=== PATIENT | male | born 1975 | race Caucasian/White ===

== ENCOUNTER 2025-03-09 17:25 | Emergency (ER) | payer MEDICAID ==
[~2025-03-09] VITALS: Ht 177.8 cm; Wt 97.7 kg
[2025-03-09 17:28] VITALS: BP 153/88; PULSE 87; RESP 16; TEMP 97.4; O2SAT 99
--- NOTE | 2025-03-09 18:09 | Physician Documentation ---
History of Present Illness ~ Chief Complaint: Bite-animal Stated Complaint: DOG BIT Time Seen by MD: 17:59 Primary Medical Doctor: NONE HPI This is a 49-year-old male who presents two days after a dog bite to the right anterior forearm caused while trying to shw[place] a dog from a neighboring camp site out of [place] away from [place] dogs. Patient reports the area was thoroughly cleaned though he is worried that it may become infected as it has become red in the area. Patient reports no fevers. Patient reports unknown last tetanus booster. Tetanus within 5 years?: Yes Medication Reconciliation Allergies: Coded Allergies: Penicillins (Verified Allergy, Unknown, 03/09/25) Scheduled Amox Tr/Potassium Clavulanate 875/125 MG (Augmentin 875/125 MG), 1 TAB PO BID Review of Systems ROS Dog bite to right forearm as stated above in the HPI, otherwise all systems are reviewed and negative. Physical Exam Vital Signs: Temperature: 97.4, Source: Temporal, Heart Rate: 87, Respiratory Rate: 16, BP: 153/88, Pulse Oximetry: 99, Weight: 97.730 Oxygen Flow Rate: 0 Physical Exam VITALS: Reviewed and as above. GENERAL: Alert, nontoxic appearing, no apparent distress. RESPIRATORY: No increased work of breathing, no respiratory distress, speaking in full clear sentences SKIN: 1 cm laceration to right anterior forearm with mild erythema surrounding wound. Progress Results/Orders Results/Orders Completed Orders - KONRAD BENAVIDES [employer] Amox Tr/Potassium Clavulanate (Augmentin (03/09/25 18:15) Tetanus/Pertuss/Diph Acell/Pf (Boostrix (03/09/25 18:15) Medications Received in ER Medications (Trade) Dose Ordered Sig/Rohit Route PRN Reason Start Time Stop Time Status Last Admin Dose Admin (Augmentin 875-125mg tablet) 1 tab ONCE ONCE PO 03/09/25 18:15 03/09/25 18:16 DC 03/09/25 18:20 1 TAB (Boostrix vaccine syringe) 0.5 ml ONCE ONCE IMVAC 03/09/25 18:15 03/09/25 18:16 DC 03/09/25 18:20 0.5 ML Vital Signs 03/09/25 17:28 Temp 97.4 Pulse 87 Resp 16 B/P (MAP) 153/88 Pulse Ox 99 O2 Flow Rate 0 Medical Decision Making Findings This 49-year-old male presented with a dog bite to his right forearm that occurred two days prior, there was some erythema on exam though no induration to suggest cellulitis. Patient is otherwise well-appearing, wound appears superficial and no evidence of retained foreign body. Patient to be treated with antibiotic and provided tetanus booster. Patient is appropriate for outpatient follow up. Patient reports allergy to penicillin in his parents, patient reports he has never had penicillin so he is unsure if he is actually allergic to it. Patient reports that he has had amoxicillin in the past without reaction. Patient provided home care instructions and return to care precautions which he verbalized understanding of. Differential Dx:Considerations: Include: Anaphylaxis, Cellulitis, Laceration, Neurovascular injury, Retained foreign body Departure Disposition: 01 HOME / SELF CARE / HOMELESS Impression: Primary Impression: Dog bite Qualified Codes: W54.0XXA - Bitten by dog, initial encounter Condition: Improved Discharge Instructions: Animal Bite, Adult Additional Instructions: Recommend washing the area 2 times a day. Keep the area clean dry and covered. Please take the antibiotics as prescribed. Please follow up with your primary care provider in the next few days. Please return to the emergency department for any new or worsening concerning symptoms including but not limited to worsening pain and swelling in the area or if you develop a fever. Referrals: NO PRIMARY CARE PROVIDER (PCP) Prescriptions Amox Tr/Potassium Clavulanate 875/125 MG (Augmentin 875/125 MG) 875 Mg-125 Mg Tablet 1 TAB PO BID for 7 Days, #14 TAB Prov: KONRAD BENAVIDES [facility] 03/09/25 Education Educated: Patient Educated regarding: diagnosis, treatment, prognosis, need for follow up Signature Scribe Signature: No scribe Attestation: The note accurately reflects work and decisions made by me.GRIFFIN Cesra 03/10/25 02:[address] [facility] Mar 09, 2025 18:09
[2025-03-09] MEDS ORDERED: AMOX-580 PO (18:10)
[2025-03-09] MEDS: TETanus/Pertussis (Acell)/Diphther VAC/PF (Tdap-Adult) 0.5ml syringe IMVAC ONE (18:20)
[2025-03-09] MEDS: amox tr/potassium clavulanate 875/125mg TAB PO ONE (18:20)
== END 2025-03-09 18:24 | disposition home or self-care (01) ==
LOC: ER 17:26
DX: S51.811A Laceration without foreign body of right forearm, initial encounter (principal); W54.0XXA Bitten by dog, initial encounter; Y93.89 Activity, other specified; Y92.89 Other specified places as the place of occurrence of the external cause; Y99.8 Other external cause status; Z88.0 Allergy status to penicillin
CPT/HCPCS: 90471; 90715; 99283